=== PATIENT | female | born 1955 | race Caucasian/White ===

== ENCOUNTER → 2025-04-23 07:02 | Outpatient (REF) | payer MEDICARE, OTHER, SELFPAY | LOC: RCS 07:02 | PROVIDERS: ATTENDING PHYSICIAN Nurse Practitioner; FAMILY PHYSICIAN Family Medicine | DX: I21.9 Acute myocardial infarction, unspecified (principal); I48.0 Paroxysmal atrial fibrillation | CPT/HCPCS: 78452; 93017; A9500 ==

== ENCOUNTER 2025-05-02 13:10 | Day surgery (SDC) | payer MEDICARE, OTHER, SELFPAY ==
[2025-05-02] VITALS (9 sets, daily range): BP systolic 87–149; BP diastolic 65–87; BMI 28.2
--- NOTE | 2025-05-02 08:09 | ITS.CL.CATH ---
[employer] - Catheterization
Cardiac Catheterization
Procedure Report:
LEFT HEART CATHETERIZATION
Date of Procedure: May 02, 2025
Referring: Dr. Pedro Avalos
PROCEDURES:
1. Left heart catheterization, coronary angiogram.
2. Moderate sedation.
INDICATION: Abnormal stress test
ACCESS: Right radial artery, 6Fr. sheath, under US guidance.
HEMODYNAMICS : (mmHg)
AO (s/d) : 149/75
LVEDP : 22
No significant gradient across the aortic valve to suggest aortic stenosis.
CORONARY FINDINGS
Dominance: Left
Left Main Trunk (LMT): Large caliber vessel that gives rise to the LAD and LCx branches and is free of angiographic disease.
Left Anterior Descending Artery (LAD): Large caliber vessel that gives off 1major diagonal branches as it courses along the anterior inter-ventricular groove before wrapping around the cardiac apex. The LAD and its branches are free of angiographic
disease.
Left Circumflex Artery (LCx): Large caliber dominant vessel that gives off 2 major obtuse marginal (OM) branches as it courses along the atrio-ventricular (AV) groove. The LCx and its branches are free of angiographic disease.
Right Coronary Artery (RCA): Small caliber caliber non-dominant vessel. The RCA and its branches are free of angiographic disease.
SEDATION: 27 minutes of procedural sedation was utilized. IV Midazolam and IV Fentanyl were administered. An independent medical detail representative was present to assist with and help manage the patient's level of consciousness and physiologic status.
Closure Device: There were no immediate intra-procedural complications. The sheath was pulled in the lab head and a vascular-band applied to the right wrist for radial artery hemostasis using the patent hemostasis technique.
CONCLUSIONS
1. Left dominant coronary circulation. No obstructive coronary artery disease.
2. Elevated LVEDP at 22 mmHg.
RECOMMENDATIONS
1. Wean radial band per protocol. Monitor right hand perfusion and for bleeding from the radial site following removal of the vascular-band following trans-radial access.
2. Continue aggressive medical therapy and risk factor modification for secondary CAD prevention.
3. Hydrate with normal saline to mitigate the risk of contrast-induced acute kidney injury.
4. Follow-up with Dr. Pedro Avalos
Copy to: Pedro Avalos
Elvi Lee MD, FAC, [facility]
[2025-05-02 14:01] LABS: Hematocrit 41.8 % (37.0-47.0); Hemoglobin 14.3 g/dL (12.0-16.0); Mean Corp Hgb Conc. 34.2 g/dL (33.0-37.0); Mean Corpuscular Hgb 32.3 pg (27.0-31.0); Mean Corpuscular Volume 94.4 fL (81.0-99.0); Mean Platelet Volume 9.2 fL (7.4-10.4); Platelet Count 270 10^3/uL (130-400); Red Blood Cell Count 4.43 10^6/uL (4.20-5.40); Red Cell Dist. Width 13.2 % (11.5-14.5); White Blood Cell Count 9.2 10^3/uL (4.8-10.8)
[2025-05-02 14:15] LABS: ALT (SGPT) 30 U/L (0-35); AST (SGOT) 29 U/L (14-36); Alkaline Phosphatase 69 U/L (38-126); Blood Urea Nitrogen 10 mg/dl (7-17); Calcium 9.9 mg/dl (8.4-10.2); Carbon Dioxide 28 mmol/L (22-30); Chloride 104 mmol/L (98-107); Estimated Creatinine Clearance 77 ml/min; Glucose 100 mg/dl (70-99); Potassium 4.3 mmol/L (3.5-5.1); Sodium 137 mmol/L (135-145); Total Bilirubin 0.8 mg/dl (0.2-1.3); Total Protein 7.6 g/dl (6.3-8.2); eGFR > 60.00
[2025-05-02] MEDS: LOW STRENGTH ASPIRIN 324 MG PO (15:20)
[2025-05-02] MEDS: NSS 230 ML IV (15:23)
== END 2025-05-02 19:50 | disposition home or self-care (01) ==
LOC: CATH 13:10
PROVIDERS: ATTENDING PHYSICIAN Internal Medicine Interventional Cardiology; FAMILY PHYSICIAN Family Medicine; OTHER PHYSICIAN Internal Medicine Cardiovascular Disease
DX: Z13.6 Encounter for screening for cardiovascular disorders (principal); R00.2 Palpitations; R94.39 Abnormal result of other cardiovascular function study; I48.0 Paroxysmal atrial fibrillation; R79.89 Other specified abnormal findings of blood chemistry; I25.2 Old myocardial infarction; Z79.01 Long term (current) use of anticoagulants; E03.9 Hypothyroidism, unspecified; Z82.49 Family history of ischemic heart disease and other diseases of the circulatory system
CPT/HCPCS: 99152; 99153; 80053; 85027; 93458; C1769; C1894; Q9967